=== PATIENT | male | born 1945 | race Caucasian/White ===

== ENCOUNTER 2016-06-08 20:37 | Emergency (ER) | payer MEDICARE, OTHER ==
[~2016-06-08] VITALS: Ht 180.3 cm; Wt 160.9 kg
[2016-06-08 20:52] VITALS: BP 150/70; PULSE 67; RESP 20; TEMP 97.9; O2SAT 95
[2016-06-08 21:01] VITALS: BP 150/70; PULSE 67; RESP 18; TEMP 97.9; O2SAT 95
[2016-06-08] MEDS ORDERED: CIAL5TAB PO (21:17)
[2016-06-08] MEDS ORDERED: POTA1080 (21:17)
[2016-06-08] MEDS ORDERED: CHLORO250 PO (21:17)
[2016-06-08] MEDS ORDERED: METF1000 PO (21:17)
[2016-06-08] MEDS ORDERED: ASPI-110 PO (21:17)
[2016-06-08] MEDS ORDERED: FURO1TAB62 PO (21:17)
[2016-06-08] MEDS ORDERED: ULOR40TA (21:17)
[2016-06-08] MEDS ORDERED: LOSA25TA PO (21:17)
--- NOTE | 2016-06-08 21:59 | PD ---
HPI Chief Complaint: Eye Problems/Injury Time Seen by Provider: 21:59 Travel History International Travel<30 days: No Contact w/Intl Traveler<30days: No Traveled to known affect area: No History of Present Illness HPI 70 year-old male presents to the emergency department by private transportation for complaint of right eye redness and injection since evening and now developing left eye redness and injection. Patient is visiting from [place] of state. Patient states symptoms began prior to traveling to [place]. Patient states that he did use leftover eyedrops prescribed for his granddaughter. Patient states he thought initially symptoms were improving but ran out of eyedrops and now notes that there is irritation extending to the left eye. Patient has also noticed some sinus pressure especially the right side has been using [id number]-[id number] decongestant with some symptom relief and also redness to the right cheek and in the infraorbital distribution. Patient is diabetic and blood sugars have been well-controlled. Patient's had no fever or chills. Patient denies any ear pain headache change in mentation no pain or difficulty swallowing. Patient's had no visual disturbance other than occasionally there is some mucus and cloudy drainage from his eye with eye last crusting in the morning and some blurring of vision at that time otherwise his vision he states is near his baseline. Patient has no loss of vision. Patient denies foreign body sensation. Patient is not noticed any vesicular rash. Patient rates discomfort 1-2/10 in intensity. Patient is unable to identify exacerbating or alleviating factors. Patient has noted some nasal congestion but no yellow- green mucous drainage. 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, tonsillectomy; occasional alcohol use no tobacco use; nursing notes reviewed Cancer: Yes (chronic lymphomic leukemia) Cardiovascular Problems: Yes (Rheumatic fever as a kid denies heart valve issues) Diabetes: Yes Patient Takes Glucophage: Yes Diminished Hearing: No Hypertension: Yes Kidney Stones: Yes Immunizations Current: Yes Tetanus Vaccination: < 5 Years Influenza Vaccination: Yes Past Surgical History Tonsillectomy: Yes Social History Alcohol Use: Yes (occasional) Tobacco Use: No (quit 40 years ago) Substance Use: No Allergies-Medications (Allergen,Severity, Reaction): Coded Allergies: Phenergan (Verified Allergy, Severe, Blurred Vision, 06/08/16) Augmentin (Verified Adverse Reaction, Intermediate, Nausea/Vomiting, ) Reported Meds & Prescriptions Reported Meds & Active Scripts Active Ilotycin Opth Oint (Erythromycin Opth Oint) 5 Mg/Gm Oint 1 Applic EACH EYE QID Doxycycline Hyclate 100 Mg Cap 100 Mg PO BID Reported Chlorothiazide 250 Mg Tab 250 Mg PO BID Losartan (Losartan Potassium) 25 Mg Tab 25 Mg PO DAILY Lasix (Furosemide) 20 Mg Tab 20 Mg PO BID Potassium Citrate ER 1,080 Mg Tab Aspirin 81 (Aspirin) 81 Mg Tabdr 81 Mg PO DAILY Cialis (Tadalafil) 5 Mg Tab 5 Mg PO DAILY Do not exceed 1 dose/day. Uloric (Febuxostat) 40 Mg Tab Metformin (Metformin HCl) 1,000 Mg Tab 1,000 Mg PO BIDPC With meals Review of Systems Except as stated in HPI: all other systems reviewed are Neg General / Constitutional: No: Fever, Chills Eyes: Positive: Blurred Vision, Drainage (intermittent), Redness, Tearing, No : Diploplia HENT: Positive: Congestion, Earache, No: Headaches, Sore Throat Cardiovascular: No: Chest Pain or Discomfort Respiratory: No: Cough, Shortness of Breath Gastrointestinal: No: Nausea, Vomiting Genitourinary: No: Flank Pain Musculoskeletal: Positive: Myalgias, Arthralgias Skin: No Rash Neurologic: No: Weakness, Dizziness Psychiatric: No: Anxiety Hematologic/Lymphatic: No: Lymph Node Enlargement Physical Exam Narrative GENERAL: Well-developed well-nourished male in no acute distress no respiratory distress SKIN: Warm and dry. HEAD: Normocephalic. EYES: No scleral icterus. Right greater than left injection with tearing drainage from the right eye; no subconjunctival hemorrhage; no ecchymosis; no foreign body; no fluorescein uptake; no dendritic changes. No upper lid edema bilaterally with right infraorbital erythema and mild edema noted. Visual acuity with corrective lenses: right eye 20/25 left eye 20/25 both eyes 20/25. ENT: Mucous membranes moist and is to percussion over the right maxillary sinus. NECK: Supple, trachea midline. No JVD or lymphadenopathy. CARDIOVASCULAR: Regular rate and rhythm without murmurs, gallops, or rubs. RESPIRATORY: Breath sounds equal bilaterally. No accessory muscle use. GASTROINTESTINAL: Abdomen soft, non-tender, nondistended. MUSCULOSKELETAL: No cyanosis, or edema. BACK: Nontender without obvious deformity. No CVA tenderness. Data Data Last Documented VS Vital Signs Date Time Temp Pulse Resp B/P Pulse Ox O2 Delivery O2 Flow Rate FiO2 06/08/16 22:17 70 18 148/76 96 06/08/16 21:01 97.9 Orders Blood Glucose (06/08/16 22:02) MDM Medical Decision Making Medical Screen Exam Complete: Yes Emergency Medical Condition: Yes Medical Record Reviewed: Yes Differential Diagnosis Conjunctivitis, iritis, sinusitis, corneal abrasion, zoster, facial cellulitis, periorbital cellulitis Narrative Course No fluorescein uptake no dendritic changes no corneal abrasion no ulceration; patient has lower lid infraorbital erythema with increased mild warmth and without fluctuance without evidence of periorbital or orbital cellulitis Random glucose 157 Patient stable for outpatient management for conjunctivitis and appears to have small area of focal facial/infraorbital cellulitis. Patient will be started on ophthalmologic ointment along with oral antibiotic. Patient is encouraged to monitor blood sugars closely and to follow-up with ventilation worker or return to the emergency department for any concerns or change in condition Diagnosis Primary Impression: Conjunctivitis Additional Impression: Facial cellulitis Referrals: Pressure Tank Operator 2 days Primary Care Physician call for appointment Additional Instructions: Complete course of oral antibiotic Apply eye ointment as prescribed May use saline drops and/or [id number] eyedrops for eye irritation Remove/cleanse crusting/debris from eye with warm moist cloth avoid cross contamination Follow-up ventilation worker Return to emergency for free concerns or change in condition Med/Other Pt SpecificInfo: Prescription(s) given Scripts Erythromycin Opth Oint (Ilotycin Opth Oint)5 Mg/Gm Oint1 Applic EACH EYE QID # 1 TUBE Ref 0 Prov:Nicky Fowler MD 06/08/16 Doxycycline Hyclate 100 Mg Nlo090 Mg PO BID #14 CAP Ref 0 Prov:Nicky Fowler MD 06/08/16 Disposition: 01 DISCHARGE HOME Condition: Stable Nicky Fowler MD Jun 08, 2016 21:59
[2016-06-08] MEDS ORDERED: ILOTOIN EACH EYE (22:12)
[2016-06-08] MEDS ORDERED: DOXY100C PO (22:12)
[2016-06-08 22:17] VITALS: BP 148/76
== END 2016-06-08 22:29 | disposition home or self-care (01) ==
LOC: PHED 20:37
DX: H10.9 Unspecified conjunctivitis (principal); L03.211 Cellulitis of face; E11.9 Type 2 diabetes mellitus without complications; I10 Essential (primary) hypertension; Z87.891 Personal history of nicotine dependence
CPT/HCPCS: 99283